=== PATIENT | male | born 1960 | race Caucasian/White ===

== ENCOUNTER 2018-07-22 10:15 | Outpatient (CLI) | payer OTHER ==
--- NOTE | 2018-07-22 13:43 | MRI ---
MRI CERVICAL SPINE: HISTORY: Cervical radiculopathy. M54.12. FINDINGS: Multiplanar, multisequence noncontrast-enhanced MRI images cervical spine obtained. Images demonstrate motion artifact which degrades the exam. The spinal cord is unremarkable with no evidence of obvious masses or lesions. C1-2: Unremarkable. C2-3: Unremarkable. C3-4 Disk desiccation is seen. There is a mild broad-based disk-osteophyte complex minimally but no t significantly compressing the thecal sac. There is no significant right-sided neural foraminal rain rowing. There is moderate left C3-4 neural foraminal narrowing due to uncovertebral osteophyte hyper trophy. C4-5: Some disk desiccation is seen. There is a broad-based disk-osteophyte complex seen centrally compressing the thecal sac resulting in minimal but not significant central stenosis. There is moder ate bilateral C4-5 neural foraminal narrowing due to uncovertebral osteophyte hypertrophy. C5-6: Disk desiccation is seen. There is a broad-based disk-osteophyte complex centrally compressin g the thecal sac. No significant central stenosis is seen. There is moderate to severe bilateral C5 -6 neural foraminal narrowing due to uncovertebral osteophyte hypertrophy. C6-7: Motion artifact is seen. Minimal to moderate bilateral C6-7 neural foraminal narrowing is see n due to uncovertebral osteophyte hypertrophy. The central canal is patent. C7-T1: Unremarkable. IMPRESSION: Motion artifact with C3-4, C4-5, and C5-6 neural foraminal narrowing seen. POS: [facility]
== END 2018-07-22 10:16 | disposition home or self-care (01) ==
LOC: TBSIIMAG 10:15
PROVIDERS: ATTEND Neurological Surgery
DX: M54.12 Radiculopathy, cervical region (principal); M48.02 Spinal stenosis, cervical region
CPT/HCPCS: 72141

== ENCOUNTER 2018-10-06 01:14 | Outpatient (CLI) | payer OTHER ==
[2018-10-06 16:44] LABS: Mean Corpuscular HGB CONC 33.5 g/dL (32.0-36.0); Mean Corpuscular Hemoglobin 31.1 pg (27.0-31.0); Mean Corpuscular Volume 92.9 fL (78.0-98.0); Mean Platelet Volume 8.4 fL (7.4-10.4); Platelet Count 226 thou/uL (130-400); RBC Distribution Width 11.9 % (11.5-14.5); Red Blood Cell (RBC) Count 4.49 mill/uL (4.70-6.10); White Blood Cell (WBC) Count 6.6 thou/uL (4.8-10.8)
[2018-10-06 16:59] LABS: Anion Gap 10 mmol/L (10-20); BUN (Urea Nitrogen) 23 mg/dL (8.4-25.7); Calc. Creatinine Clearance 0 mL/min (70-130); Calcium 9.5 mg/dL (7.8-10.44); Carbon Dioxide 25 mmol/L (22-29); Chloride 107 mmol/L (98-107); Estimated GFR-MDRD 84; Glucose 133 mg/dL (70-105); Potassium 3.7 mmol/L (3.5-5.1); Sodium 138 mmol/L (136-145)
--- NOTE | 2018-10-07 21:20 | EKG ---
Test Reason : Blood Pressure : / mmHG Vent. Rate : 067 BPM Atrial Rate : 067 BPM P-R Int : 156 ms QRS Dur : 100 ms QT Int : 434 ms P-R-T Axes : 052 -30 014 degrees QTc Int : 458 ms Normal sinus rhythm Left axis deviation Inferior infarct , age undetermined Possible Anterolateral infarct , age undetermined Low voltage QRS Abnormal ECG No previous ECGs available Confirmed by SINDI HANEY, DR. Aviles ([id number]) on 10/07/2018 9:19:29 PM Referred By: ALECIA Confirmed By:DR. Traci DELONG MD
== END 2018-10-06 01:15 | disposition home or self-care (01) ==
LOC: LABBT 01:14
PROVIDERS: ATTEND Neurological Surgery
DX: Z01.818 Encounter for other preprocedural examination (principal); M54.12 Radiculopathy, cervical region
CPT/HCPCS: 80048; 85027; 93005; 93010

== ENCOUNTER 2018-10-11 06:27 | Day surgery (SDC) | payer OTHER ==
[2018-10-06 16:03] VITALS: BMI 34.4
[2018-10-11] MEDS ORDERED: Fentanyl 100 MCG/2 ML VIAL ONE (06:53)
[2018-10-11] MEDS ORDERED: Sodium Chloride 0.9% 10 ML ONE (07:09)
[2018-10-11] MEDS ORDERED: Tamsulosin HCl 0.4 MG CAP ONE (13:53)
[2018-10-11] MEDS ORDERED: Ketorolac Tromethamine 30 MG/ML VIAL ONE (15:09)
[2018-10-11] MEDS ORDERED: Glycopyrrolate 0.2 MG/ML 5 ML SYRINGE ONE (15:09)
[2018-10-11] MEDS ORDERED: Dexamethasone 20 MG/5 ML VIAL ONE (15:09)
[2018-10-11] MEDS ORDERED: Ondansetron PF 4 MG/2 ML Vial ONE (15:09)
[2018-10-11] MEDS ORDERED: Lidocaine 1% PF 5 ML VIAL ONE (15:09)
[2018-10-11] MEDS ORDERED: PROPOFOL 200 MG/20 ML VIAL ONE (15:09)
[2018-10-11] MEDS ORDERED: Rocuronium Bromide 10 MG/ML (10ML VIAL) ONE (15:09)
[2018-10-11] MEDS ORDERED: ePHEDrine 50 MG/ML VIAL ONE (15:09)
--- NOTE | 2018-10-11 15:34 | OP ---
DATE OF PROCEDURE: 10/11/2018 [employer] CONSULTANT: Yung Jeronimo PA-C PROCEDURE PERFORMED: Anterior cervical diskectomy C4-C5 and C5-C6, interbody arthrodesis, intervertebral biomechanical device, local morselized autograft, demineralized bone matrix, and anterior titanium instrumentation C4 through C6. DESCRIPTION OF PROCEDURE: The patient was brought to the operating room and intubated. He was positioned supine in modest extension on a gel-filled donut. An incision was made in the right precervical area and dissected medial to the sternocleidomastoid muscle, identified the anterior cervical spinal, and the level was confirmed by x-ray. We debrided the anterior osteophytes, placed distraction across the disk spaces, and using the operative microscope and microdissection techniques, completely removed the intervertebral disks at C4-C5 and C5-C6. The bony endplates were then decorticated for the purpose of arthrodesis and appropriate-sized intervertebral biomechanical device was brought in the field. It was filled with demineralized bone matrix and local morselized autograft and tapped in place securely at C4-C5 and C5-C6. Next, an anterior plate was brought into the field and secured to C4, C5, and C6 using two 14-mm screws at each level. The wound was then extensively irrigated and maximum hemostasis was secured and the wound was closed in anatomic layers. Job ID: [id number]
== END 2018-10-11 15:12 | disposition home or self-care (01) ==
LOC: SDC 06:27
PROVIDERS: ATTEND Neurological Surgery
PROC: 0RT30ZZ Resection of Cervical Vertebral Disc, Open Approach (ICD-10-PCS; principal; 2018-10-11)
PROC: 0RG20A0 Fusion of 2 or more Cervical Vertebral Joints with Interbody Fusion Device, Anterior Approach, Anterior Column, Open Approach (ICD-10-PCS; principal; 2018-10-11)
DX: M50.121 Cervical disc disorder at C4-C5 level with radiculopathy (principal); I10 Essential (primary) hypertension; Z79.1 Long term (current) use of non-steroidal anti-inflammatories (NSAID); Z79.82 Long term (current) use of aspirin; Z79.899 Other long term (current) drug therapy
CPT/HCPCS: 76000; C1713; C1776; J3010; J3490

== ENCOUNTER 2018-10-27 15:33 | Outpatient (CLI) | payer OTHER ==
--- NOTE | 2018-10-27 15:55 | RAD ---
CERVICAL SPINE 4 VIEWS: HISTORY: Postop followup. Cervical radiculopathy. COMPARISON: MRI cervical spine 07/22/2018. FINDINGS: Postop changes are now noted. The anterior plate and screws are now present transfixing C4, C5, and C6 with interbody implants. There is an anterolisthesis of C3 on C4 which was present on the MRI and measures approximately 3 mm today. Posterior alignment is otherwise maintained. IMPRESSION: Postoperative changes of cervical spine noted. Anterolisthesis at C3-4 noted. POS: [facility]
== END 2018-10-27 15:34 | disposition home or self-care (01) ==
LOC: TBSIIMAG 15:33
PROVIDERS: ATTEND Neurological Surgery
DX: M54.12 Radiculopathy, cervical region (principal); M43.12 Spondylolisthesis, cervical region; Z98.890 Other specified postprocedural states
CPT/HCPCS: 72040

== ENCOUNTER 2018-12-08 14:39 | Outpatient (CLI) | payer OTHER ==
--- NOTE | 2018-12-08 14:56 | RAD ---
XR Cerv Sp Ap Lat STANDARD HISTORY: Follow-up surgery. COMPARISON: 10/27/2018 exam. FINDINGS: Patient is undergone anterior cervical fusion extending from C4 to C6. Markers of the disc implants are within the confines of the disc levels. The anterolisthesis of C3 on C4 is stable. Soft tissue swelling has diminished. IMPRESSION: Stable postop change.
== END 2018-12-08 14:40 | disposition home or self-care (01) ==
LOC: TBSIIMAG 14:39
PROVIDERS: ATTEND Neurological Surgery
DX: M48.02 Spinal stenosis, cervical region (principal); M50.30 Other cervical disc degeneration, unspecified cervical region; Z98.890 Other specified postprocedural states
CPT/HCPCS: 72040

== ENCOUNTER 2021-02-22 07:01 | Day surgery (SDC) | payer OTHER ==
[2021-02-22 07:51] VITALS: BP 111/68
[2021-02-22 07:52] VITALS: BMI 36.1
[2021-02-22] MEDS ORDERED: Iopamidol-M 300 61% 15 ML VIAL ONE (10:33)
== END 2021-02-22 10:10 | disposition home or self-care (01) ==
LOC: RAD 07:01
PROVIDERS: ATTEND Physical Medicine & Rehabilitation
PROC: B02B1ZZ Computerized Tomography (CT Scan) of Spinal Cord using Low Osmolar Contrast (ICD-10-PCS; principal; 2021-02-22)
DX: M54.12 Radiculopathy, cervical region (principal); M43.12 Spondylolisthesis, cervical region; Z79.899 Other long term (current) drug therapy; Z98.1 Arthrodesis status
CPT/HCPCS: 62305; 72040; 72126; Q9967

== ENCOUNTER 2021-05-09 10:20 | Outpatient (CLI) | payer OTHER ==
[2021-05-09 11:35] LABS: #Eosinphils 0.1 10x3/uL (0.0-0.5); #Monocytes 0.7 10x3/uL (0.0-1.1); #Neutrophils 5.7 10x3/uL (1.5-8.4); %Basophils 0.5 % (0.0-2.0); %Eosinophils 1.5 % (0.0-6.0); %Lymphocytes 25.3 % (18.0-47.0); %Monocytes 7.6 % (0.0-10.0); %Neutrophils 64.9 % (40.0-75.0); Hemoglobin 13.1 g/dL (13.5-17.5); Mean Corpuscular HGB CONC 33.2 g/dL (32.0-36.0); Mean Corpuscular Volume 93.4 fl (81.2-95.1); Mean Platelet Volume 10.2 fl (7.4-10.4); Platelet Count 266 10x3/uL (150-450); RBC Distribution Width 12.5 % (11.5-14.5); Red Blood Cell (RBC) Count 4.23 10x6/uL (4.32-5.72); White Blood Cell (WBC) Count 8.8 10x3/uL (3.5-10.5)
[2021-05-09 11:59] LABS: Anion Gap 14 mmol/L (10-20); BUN (Urea Nitrogen) 20 mg/dL (8.4-25.7); Calc. Creatinine Clearance 0 mL/min (70-130); Carbon Dioxide 22 mmol/L (23-31); Chloride 111 mmol/L (98-107); Glucose 120 mg/dL (80-115); Potassium 4.3 mmol/L (3.5-5.1); Prothrombin Time 10.7 sec (9.5-12.1); Sodium 143 mmol/L (136-145)
[2021-05-10 00:05] LABS: SARS-CoV-2 PCR by NAA Not Detected (NotDetected)
== END 2021-05-09 10:21 | disposition home or self-care (01) ==
LOC: LABBT 10:20
PROVIDERS: ATTEND Orthopaedic Surgery
DX: Z01.818 Encounter for other preprocedural examination (principal); M17.12 Unilateral primary osteoarthritis, left knee; Z20.822 Contact with and (suspected) exposure to COVID-19
CPT/HCPCS: 80048; 85025; 85610; 87081; 93005; 93010; U0003; U0005

== ENCOUNTER 2021-05-14 07:28 | Day surgery (SDC) | payer OTHER ==
[2021-05-13 10:14] VITALS: BMI 36.1
[2021-05-14] MEDS ORDERED: Ropivacaine 0.2% HCl/PF 20 ML ONE (07:40)
[2021-05-14] MEDS ORDERED: Midazolam HCl 2 mg/2 ml Vial ONE (07:41)
[2021-05-14] MEDS ORDERED: Fentanyl 100 MCG/2 ML VIAL ONE ×4 (07:41→12:24)
[2021-05-14] MEDS ORDERED: Tranexamic Acid 1,000 MG/10 ML VIAL ONE (07:47)
[2021-05-14] MEDS ORDERED: Sodium Chloride 0.9% 100 ML ONE (07:47)
[2021-05-14] MEDS ORDERED: VANCOMYCIN 2 GRAM/400 ML BAG 2 GM in Premix Bag 1 BAG IVPB SCH ×3 (08:00→21:00)
[2021-05-14] MEDS ORDERED: Dexamethasone 20 MG/5 ML VIAL ONE (09:48)
[2021-05-14] MEDS ORDERED: Bupivacaine HCl 0.5%/Epinephrine 1:200,000/PF 30 ml Vial ONE (09:48)
[2021-05-14] MEDS ORDERED: Ropivacaine 2% HCl/PF (20 MG/10 ML VIAL) ONE (09:48)
[2021-05-14] MEDS ORDERED: PROPOFOL 200 MG/20 ML VIAL ONE (09:48)
[2021-05-14] MEDS ORDERED: Ondansetron PF 4 MG/2 ML Vial ONE (09:48)
[2021-05-14] MEDS ORDERED: ePHEDrine 50 MG/ML VIAL ONE (09:48)
[2021-05-14] MEDS ORDERED: Lidocaine 1% PF 5 ML VIAL ONE (09:48)
[2021-05-14] MEDS ORDERED: Ropivacaine HCl/PF 250 ML in Premix Bag 1 BAG NERVE BLCK SCH (10:00)
[2021-05-14] MEDS ORDERED: Zolpidem Tartrate 5 MG TAB PO PRN ×2 (10:00→11:18)
[2021-05-14] MEDS ORDERED: Promethazine HCl 25 MG/ML VIAL IM PRN ×3 (10:00→11:27)
[2021-05-14] MEDS ORDERED: HYDROcodone/Acetaminophen 10/325 mg Tablet PO PRN ×3 (10:00→11:18)
[2021-05-14] MEDS ORDERED: Ondansetron PF 4 MG/2 ML Vial IVP PRN ×2 (10:00→11:18)
[2021-05-14] MEDS ORDERED: EPINEPHrine 1 MG/ML AMP ONE (10:16)
[2021-05-14] MEDS ORDERED: Bupivacaine 0.25% HCL 30 ML VIAL ONE (10:16)
[2021-05-14] MEDS ORDERED: Fentanyl 100 MCG/2 ML VIAL SLOW IVP PRN ×2 (11:18)
[2021-05-14] MEDS ORDERED: diphenhydrAMINE 25 MG CAP PO PRN (11:18)
[2021-05-14] MEDS ORDERED: traMADol HCl 50 MG TAB PO PRN (11:18)
[2021-05-14] MEDS ORDERED: Ondansetron HCl/PF 4 MG/2 ML Vial IVP PRN (11:27)
[2021-05-14] MEDS ORDERED: Morphine Sulfate 2 MG/ML SYRINGE SLOW IVP PRN (11:27)
[2021-05-14] MEDS ORDERED: Promethazine HCl 25 MG/ML VIAL IVPB PRN (11:27)
[2021-05-14] MEDS ORDERED: Ketorolac Tromethamine 30 MG/ML VIAL IVP SCH (12:00)
[2021-05-14] MEDS: Sodium Chloride 0.9% 1,000 ML IV SCH ×2 (13:55→21:36)
[2021-05-14] MEDS: HYDROcodone/Acetaminophen 10/325 mg Tablet PO PRN ×2 (14:11→18:43)
[2021-05-14] MEDS: CEFAZOLIN 2 GM in Sodium Chloride 0.9% 100 ML IVPB SCH (16:52)
[2021-05-14] MEDS: Ketorolac Tromethamine 30 MG/ML VIAL IVP PRN (20:12)
[2021-05-14] MEDS: Aspirin 81 mg Enteric Coated Tablet PO SCH (20:13)
[2021-05-14] MEDS ORDERED: Vancomycin HCl 500 MG in Sodium Chloride 0.9% 100 ML IVPB SCH (21:00)
[2021-05-15] MEDS: CEFAZOLIN 2 GM in Sodium Chloride 0.9% 100 ML IVPB SCH (01:32)
[2021-05-15] MEDS: traMADol HCl 50 MG TAB PO PRN ×2 (01:33→11:19)
[2021-05-15 06:25] LABS: Hemoglobin 11.8 g/dL (14.0-18.0); Mean Corpuscular HGB CONC 33.2 g/dL (32.0-36.0); Mean Corpuscular Hemoglobin 31.9 pg (27.0-31.0); Mean Corpuscular Volume 96.3 fL (78.0-98.0); Mean Platelet Volume 7.4 fL (7.4-10.4); Platelet Count 286 thou/uL (130-400); RBC Distribution Width 11.5 % (11.5-14.5); Red Blood Cell (RBC) Count 3.69 mill/uL (4.70-6.10); White Blood Cell (WBC) Count 17.1 thou/uL (4.8-10.8)
[2021-05-15] MEDS: Sodium Chloride 0.9% 1,000 ML IV SCH ×2 (09:58→15:18)
[2021-05-15] MEDS: HYDROcodone/Acetaminophen 10/325 mg Tablet PO PRN ×2 (10:02→19:20)
[2021-05-15] MEDS: Senokot S 8.6-50 MG TAB PO SCH ×2 (10:07→20:20)
[2021-05-15] MEDS: Multivitamin W/ Minerals 1 TAB PO SCH ×2 (10:07→10:08)
[2021-05-15] MEDS: Ferrous Gluconate 324 MG TAB PO SCH ×2 (10:07→20:20)
[2021-05-15] MEDS: Aspirin 81 mg Enteric Coated Tablet PO SCH ×2 (10:08→20:20)
[2021-05-15] MEDS: Acetaminophen 325 MG TAB PO PRN (11:20)
[2021-05-15] MEDS: Ketorolac Tromethamine 30 MG/ML VIAL IVP PRN ×2 (13:03→20:21)
[2021-05-16] MEDS: HYDROcodone/Acetaminophen 10/325 mg Tablet PO PRN ×4 (00:17→21:59)
[2021-05-16] MEDS: Sodium Chloride 0.9% 1,000 ML IV SCH ×2 (03:20→13:14)
[2021-05-16 06:38] LABS: Hemoglobin 11.9 g/dL (14.0-18.0); Mean Corpuscular HGB CONC 32.6 g/dL (32.0-36.0); Mean Corpuscular Hemoglobin 31.4 pg (27.0-31.0); Mean Corpuscular Volume 96.3 fL (78.0-98.0); Mean Platelet Volume 7.3 fL (7.4-10.4); Platelet Count 280 thou/uL (130-400); RBC Distribution Width 11.5 % (11.5-14.5); Red Blood Cell (RBC) Count 3.78 mill/uL (4.70-6.10); White Blood Cell (WBC) Count 10.9 thou/uL (4.8-10.8)
[2021-05-16] MEDS: Acetaminophen 325 MG TAB PO PRN ×2 (09:10→18:07)
[2021-05-16] MEDS: Aspirin 81 mg Enteric Coated Tablet PO SCH ×2 (09:10→20:15)
[2021-05-16] MEDS: Senokot S 8.6-50 MG TAB PO SCH ×2 (09:10→20:18)
[2021-05-16] MEDS: Ferrous Gluconate 324 MG TAB PO SCH ×2 (09:11→20:15)
[2021-05-16] MEDS: traMADol HCl 50 MG TAB PO PRN ×2 (09:12→18:06)
[2021-05-16] MEDS: Multivitamin W/ Minerals 1 TAB PO SCH (09:12)
[2021-05-16] MEDS ORDERED: Ropivacaine 0.2% 550 ML 550 ML NERVE BLCK SCH (12:15)
[2021-05-16] MEDS: Ketorolac Tromethamine 30 MG/ML VIAL IVP PRN ×2 (12:37→20:14)
[2021-05-16] MEDS: tiZANidine HCl 4 MG TAB PO SCH ×2 (12:37→17:34)
[2021-05-16] MEDS ORDERED: Lisinopril 20 MG TAB PO SCH (12:45)
[2021-05-16] MEDS ORDERED: Amlodipine 5 MG TAB PO SCH (12:45)
[2021-05-16] MEDS: Naproxen 500 MG TAB PO SCH (20:15)
[2021-05-16] MEDS ORDERED: NAPROXEN SODIUM 220 MG PO SCH (21:00)
[2021-05-17] MEDS: traMADol HCl 50 MG TAB PO PRN ×3 (00:04→12:16)
[2021-05-17] MEDS: tiZANidine HCl 4 MG TAB PO SCH ×5 (00:04→12:20)
[2021-05-17] MEDS: Sodium Chloride 0.9% 1,000 ML IV SCH ×2 (00:07→09:31)
[2021-05-17] MEDS: Ketorolac Tromethamine 30 MG/ML VIAL IVP PRN (03:55)
[2021-05-17] MEDS: HYDROcodone/Acetaminophen 10/325 mg Tablet PO PRN ×2 (03:56→09:27)
[2021-05-17 05:55] LABS: Hemoglobin 11.1 g/dL (14.0-18.0); Mean Corpuscular HGB CONC 33.7 g/dL (32.0-36.0); Mean Corpuscular Hemoglobin 32.6 pg (27.0-31.0); Mean Corpuscular Volume 96.9 fL (78.0-98.0); Mean Platelet Volume 7.1 fL (7.4-10.4); Platelet Count 264 thou/uL (130-400); RBC Distribution Width 11.6 % (11.5-14.5); Red Blood Cell (RBC) Count 3.39 mill/uL (4.70-6.10); White Blood Cell (WBC) Count 10.8 thou/uL (4.8-10.8)
[2021-05-17] MEDS ORDERED: Amlodipine 5 MG TAB PO SCH (09:00)
[2021-05-17] MEDS ORDERED: Multivit, Therapeutic 1 TAB PO SCH (09:00)
[2021-05-17] MEDS ORDERED: Non-Formulary Item 1 EACH (Lisinopril [Lisinopril] 40 MG Tablet) PO SCH (09:00)
[2021-05-17] MEDS ORDERED: Non-Formulary Item 1 EACH (Multivitamin [Multivitamins] 1 CAP Capsule) PO SCH (09:00)
[2021-05-17] MEDS ORDERED: Loratadine 10 MG TAB PO SCH (09:00)
[2021-05-17] MEDS ORDERED: Ascorbic Acid 500 mg Chewable Tablet PO SCH (09:00)
[2021-05-17] MEDS ORDERED: Cetirizine HCl 10 MG TAB PO SCH (09:00)
[2021-05-17] MEDS ORDERED: Lisinopril 20 MG TAB PO SCH (09:00)
[2021-05-17] MEDS: Senokot S 8.6-50 MG TAB PO SCH (09:29)
[2021-05-17] MEDS: Naproxen 500 MG TAB PO SCH (09:29)
[2021-05-17] MEDS: Aspirin 81 mg Enteric Coated Tablet PO SCH (09:37)
[2021-05-17] MEDS: Ferrous Gluconate 324 MG TAB PO SCH (09:37)
[2021-05-17] MEDS: Acetaminophen 325 MG TAB PO PRN (12:18)
[2021-05-17 12:51] VITALS: BP 131/76; TEMP 97.5
== END 2021-05-17 13:40 | disposition home or self-care (01) ==
LOC: SDC 07:28 → EDSTATUS 10:30 → SURG B 11:18 → SDC 05-17 13:40
PROVIDERS: ATTEND Orthopaedic Surgery
PROC: 3E0T3BZ Introduction of Anesthetic Agent into Peripheral Nerves and Plexi, Percutaneous Approach (ICD-10-PCS; principal; 2021-05-14)
PROC: 0SRD0J9 Replacement of Left Knee Joint with Synthetic Substitute, Cemented, Open Approach (ICD-10-PCS; principal; 2021-05-14)
DX: M17.12 Unilateral primary osteoarthritis, left knee (principal); I10 Essential (primary) hypertension; Z79.1 Long term (current) use of non-steroidal anti-inflammatories (NSAID); Z79.899 Other long term (current) drug therapy; Z98.1 Arthrodesis status
CPT/HCPCS: 36415; 85027; A4306; C1713; C1776; J0171; J0690; J1100; J1885; J2250; J2405; J2704; J2795; J3010; J3370; J3490; J7030; S0020

== ENCOUNTER 2022-04-28 11:24 | Outpatient (CLI) | payer OTHER | END 2022-04-28 11:25 | disposition home or self-care (01) | LOC: BICRAD 11:24 | PROVIDERS: ATTEND Internal Medicine Rheumatology | DX: M25.541 Pain in joints of right hand (principal); M19.041 Primary osteoarthritis, right hand ==

== ENCOUNTER 2023-08-07 10:59 | Outpatient (CLI) | payer OTHER, MEDICARE | END 2023-08-07 11:00 | disposition home or self-care (01) | LOC: BICULT 10:59 | PROVIDERS: ATTEND Family Medicine | DX: Z00.00 Encounter for general adult medical examination without abnormal findings (principal); Z12.83 Encounter for screening for malignant neoplasm of skin; L98.9 Disorder of the skin and subcutaneous tissue, unspecified; D17.4 Benign lipomatous neoplasm of intrathoracic organs | CPT/HCPCS: 76775 ==

== ENCOUNTER 2024-01-08 09:25 | Outpatient (CLI) | payer OTHER, MEDICARE ==
[2024-01-08 11:13] LABS: #Basophils 0.06 10x3/uL (0.0-0.2); #Eosinphils 0.14 10x3/uL (0.0-0.5); #Monocytes 0.78 10x3/uL (0.0-1.1); #Neutrophils 5.04 10x3/uL (1.5-8.4); %Basophils 0.7 % (0.0-2.0); %Eosinophils 1.7 % (0.0-6.0); %Lymphocytes 24.9 % (18.0-47.0); %Monocytes 9.7 % (0.0-10.0); %Neutrophils 62.6 % (40.0-75.0); Hematocrit 42.7 % (38.8-50.0); Hemoglobin 14.2 g/dL (13.5-17.5); Mean Corpuscular HGB CONC 33.3 g/dL (32.0-36.0); Mean Corpuscular Hemoglobin 30.9 pg (27.0-33.0); Mean Corpuscular Volume 92.8 fL (81.2-95.1); Mean Platelet Volume 11.1 fL (7.4-10.4); Platelet Count 240 10x3/uL (150-450); RBC Distribution Width 13.5 % (11.5-14.5); White Blood Cell (WBC) Count 8.1 10x3/uL (3.5-10.5)
[2024-01-08 11:36] LABS: Prothrombin Time 10.6 sec (9.5-12.1)
[2024-01-08 11:49] LABS: Anion Gap 13 mmol/L (10-20); BUN (Urea Nitrogen) 26 mg/dL (8.4-25.7); Calc. Creatinine Clearance 0 mL/min (70-130); Calcium 9.6 mg/dL (7.8-10.44); Carbon Dioxide 21 mmol/L (23-31); Chloride 109 mmol/L (98-107); Estimated GFR 77; Glucose 122 mg/dL (80-115); Sodium 138 mmol/L (136-145)
[2024-01-08 12:10] LABS: Large Platelets SLIGHT (None Seen); Platelet Adequacy Comment Appears Adequate; RBC Morph Comment Within Normal Limits
== END 2024-01-08 09:26 | disposition home or self-care (01) ==
LOC: LABBT 09:25
PROVIDERS: ATTEND Orthopaedic Surgery
DX: Z01.818 Encounter for other preprocedural examination (principal); M17.11 Unilateral primary osteoarthritis, right knee
CPT/HCPCS: 80048; 85025; 85610; 87081; 93005; 93010

== ENCOUNTER 2024-01-12 13:37 | Outpatient (CLI) | payer OTHER, MEDICARE | END 2024-01-12 13:38 | disposition home or self-care (01) | LOC: BICCT 13:37 | PROVIDERS: ATTEND Orthopaedic Surgery | DX: M17.11 Unilateral primary osteoarthritis, right knee (principal); M25.461 Effusion, right knee; M25.761 Osteophyte, right knee; I70.90 Unspecified atherosclerosis ==

== ENCOUNTER 2024-01-19 05:26 | Observation (INO) | payer OTHER, MEDICARE ==
[2024-01-08 09:37] VITALS: BMI 34.4
[2024-01-19] MEDS ORDERED: Bupivacaine 0.25% HCL 30 ML VIAL ONE (06:22)
[2024-01-19] MEDS ORDERED: EPINEPHrine 1 MG/ML VIAL ONE (06:22)
[2024-01-19] MEDS ORDERED: Sodium Chloride 0.9% 100 ML ONE ×2 (06:38→06:51)
[2024-01-19] MEDS ORDERED: Tranexamic Acid 1,000 MG/10 ML VIAL ONE (06:38)
[2024-01-19] MEDS ORDERED: Vancomycin (BATCH) 1.5 GM/300 ML BAG ONE (06:39)
[2024-01-19] MEDS ORDERED: fentaNYL 50 mcg/mL 1 mL Vial ONE (06:40)
[2024-01-19] MEDS ORDERED: Lidocaine 1% (PF) 30 ML VIAL ONE (06:40)
[2024-01-19] MEDS ORDERED: Midazolam HCl 2 mg/2 ml Vial ONE (06:40)
[2024-01-19] MEDS ORDERED: Bupivacaine PF 0.5% 30 ML VIAL ONE (06:40)
[2024-01-19] MEDS ORDERED: CEFAZOLIN 2 GM VIAL ONE (06:51)
[2024-01-19] MEDS ORDERED: Dexmedetomidine 200 MCG/2 ML VIAL ONE (07:04)
[2024-01-19] MEDS ORDERED: Magnesium 5 GM/10 ML VIAL ONE (07:04)
[2024-01-19] MEDS ORDERED: PROPOFOL 20 ML ONE (07:09)
[2024-01-19] MEDS ORDERED: fentaNYL PF 100 MCG/2 ML SYRINGE ONE ×3 (07:09→10:01)
[2024-01-19] MEDS ORDERED: fentaNYL 50 mcg/mL 1 mL Vial SLOW IVP PRN (07:16)
[2024-01-19] MEDS ORDERED: PHENYLEPHRINE-NS 100 MCG/ML 10 ML SYRINGE ONE ×2 (07:27→07:36)
[2024-01-19] MEDS ORDERED: Promethazine HCl 25 MG/ML VIAL IM PRN ×2 (07:30→09:09)
[2024-01-19] MEDS ORDERED: Ondansetron PF 4 MG/2 ML Vial IVP PRN ×2 (07:30→09:09)
[2024-01-19] MEDS ORDERED: HYDROcodone/Acetaminophen 5/325 mg Tablet PO PRN (07:30)
[2024-01-19] MEDS ORDERED: ePHEDrine Sulfate 50 MG/10 ML VIAL ONE ×2 (07:30→07:37)
[2024-01-19] MEDS ORDERED: Zolpidem Tartrate 5 MG TAB PO PRN ×2 (07:30→09:09)
[2024-01-19] MEDS ORDERED: Ropivacaine 0.2% 550 ML 550 ML NERVE BLCK SCH (07:30)
[2024-01-19] MEDS ORDERED: traMADol HCl 50 MG TAB PO PRN ×2 (07:30)
[2024-01-19] MEDS ORDERED: Dexamethasone 20 MG/5 ML VIAL ONE (07:34)
[2024-01-19] MEDS ORDERED: Phenylephrine 10 MG/ML VIAL ONE (07:44)
[2024-01-19] MEDS ORDERED: HYDROmorphone 2 MG/ML VIAL ONE (08:01)
[2024-01-19] MEDS ORDERED: SUGAMMADEX SODIUM 200 MG/2 ML VIAL ONE (08:22)
[2024-01-19] MEDS ORDERED: Ondansetron PF 4 MG/2 ML Vial ONE (08:25)
[2024-01-19] MEDS ORDERED: Ketorolac Tromethamine 30 MG (1 mL) VIAL ONE (08:25)
[2024-01-19] MEDS ORDERED: Lidocaine 2% PF 5 ML VIAL ONE (08:25)
[2024-01-19] MEDS ORDERED: Acetaminophen 325 MG TAB PO PRN (09:09)
[2024-01-19] MEDS ORDERED: diphenhydrAMINE 25 MG CAP PO PRN (09:09)
[2024-01-19] MEDS ORDERED: Ketorolac Tromethamine 30 MG (1 mL) VIAL IVP SCH (12:00)
[2024-01-19] MEDS: Sodium Chloride 0.9% 1,000 ML IV SCH (12:18)
[2024-01-19] MEDS ORDERED: POTASSIUM CITRATE 99 MG PO PRN (12:24)
[2024-01-19] MEDS: Ketorolac Tromethamine 30 MG (1 mL) VIAL IVP SCH (12:46)
[2024-01-19] MEDS: HYDROcodone/Acetaminophen 5/325 mg Tablet PO PRN (13:50)
[2024-01-19] MEDS: CEFAZOLIN 2 GM in Sodium Chloride 0.9% 100 ML IVPB SCH (16:29)
[2024-01-19] MEDS: Vancomycin (BATCH) 1.5 GM in Premix 1 BAG IVPB SCH (18:29)
[2024-01-19] MEDS: Senokot S 8.6-50 MG TAB PO SCH (19:44)
[2024-01-19] MEDS: Aspirin 81 mg Enteric Coated Tablet PO SCH (19:45)
[2024-01-19] MEDS: Ferrous Gluconate 324 MG TAB PO SCH (19:45)
[2024-01-20 06:11] LABS: Hematocrit 35.9 % (42.0-52.0); Hemoglobin 11.5 g/dL (14.0-18.0); Mean Corpuscular Hemoglobin 31.3 pg (27.0-31.0); Mean Corpuscular Volume 97.6 fL (78.0-98.0); Mean Platelet Volume 10.5 fL (7.4-10.4); Platelet Count 222 10x3/uL (130-400); RBC Distribution Width 13.8 % (11.5-14.5); Red Blood Cell (RBC) Count 3.68 mill/uL (4.70-6.10)
[2024-01-20 07:53] VITALS: TEMP 97.9
[2024-01-20] MEDS: Multivit, Therapeutic 1 TAB PO SCH (09:12)
[2024-01-20] MEDS: Multivitamin W/ Minerals 1 TAB PO SCH (09:12)
[2024-01-20 09:14] VITALS: BP 113/66
[2024-01-20] MEDS: Amlodipine 5 MG TAB PO SCH (09:14)
[2024-01-20] MEDS: Lisinopril 20 MG TAB PO SCH (09:14)
[2024-01-21] MEDS ORDERED: Naproxen 500 MG TAB PO SCH (09:00)
== END 2024-01-20 12:10 | disposition home or self-care (01) ==
LOC: SDC 05:26 → SJJU 11:46
PROVIDERS: ADMIT Orthopaedic Surgery; ATTEND Orthopaedic Surgery
PROC: 0SRC0JZ Replacement of Right Knee Joint with Synthetic Substitute, Open Approach (ICD-10-PCS; principal; 2024-01-19)
DX: M17.11 Unilateral primary osteoarthritis, right knee (principal); I10 Essential (primary) hypertension; E66.9 Obesity, unspecified; E78.5 Hyperlipidemia, unspecified; Z96.652 Presence of left artificial knee joint; Z79.899 Other long term (current) drug therapy
CPT/HCPCS: 0055T; 27447; 64447; 36415; 85027; A4306; C1713; C1776; C1889; J0171; J0665; J1100; J1170; J1885; J2001; J2250; J2371; J2405; J2704; J2795; J3010; J3370; J3475; J3490